=== PATIENT | male | born 1960 | race Caucasian/White ===

== ENCOUNTER → 2024-06-21 06:14 | Day surgery (SDC) | payer BC, SELFPAY | LOC: GI 06:14 | PROVIDERS: ATTENDING PHYSICIAN Surgery | DX: Z12.11 Encounter for screening for malignant neoplasm of colon (principal); K57.30 Diverticulosis of large intestine without perforation or abscess without bleeding; K62.1 Rectal polyp; Z86.0109 Personal history of other colon polyps; Z80.0 Family history of malignant neoplasm of digestive organs | CPT/HCPCS: 45380; 88305 ==

== ENCOUNTER → 2024-06-29 15:55 | Outpatient (REF) | payer BC, SELFPAY | LOC: HWRAD 15:55 | PROVIDERS: ATTENDING PHYSICIAN Internal Medicine Critical Care Medicine; FAMILY PHYSICIAN Family Medicine | DX: Z87.891 Personal history of nicotine dependence (principal) | CPT/HCPCS: 71271 ==

== ENCOUNTER → 2025-01-20 07:53 | Outpatient (REF) | payer BC, SELFPAY ==
[2025-01-20 08:37] LABS: % Basophils 0.7 % (0-2); % Eosinophils 2.9 % (0-6); % Immature Granulocytes 0.9 % (0-0.5); % Lymphocytes 22.8 % (20.5-51.1); % Monocytes 8.2 % (1.7-9.3); % Neutrophils 64.5 % (42.2-75.2); Absolute Basophils 0.1 10^3/uL (0-0.2); Absolute Eosinophils 0.2 10^3/uL (0-0.7); Absolute Immature Granulocytes 0.1 10^3/uL (0-0.05); Absolute Lymphocytes 1.7 10^3/uL (1.2-3.4); Absolute Monocytes 0.6 10^3/uL (0.1-0.6); Absolute Neutrophils 4.9 10^3/uL (1.4-6.5); Hematocrit 44.1 % (39.0-52.0); Hemoglobin 15.5 g/dL (13.0-18.0); Mean Corp Hgb Conc. 35.1 g/dL (33.0-37.0); Mean Corpuscular Hgb 31.7 pg (27.0-31.0); Mean Corpuscular Volume 90.2 fL (80.0-94.0); Mean Platelet Volume 9.6 fL (7.4-10.4); Nucleated Red Blood Cells % 0 % (-); Platelet Count 183 10^3/uL (130-400); Red Blood Cell Count 4.89 10^6/uL (4.70-6.10); Red Cell Dist. Width 12.6 % (11.5-14.5); White Blood Cell Count 7.5 10^3/uL (4.8-10.8)
[2025-01-20 09:09] LABS: ALT (SGPT) 29 U/L (0-50); AST (SGOT) 23 U/L (17-59); Albumin 4.5 g/dl (3.5-5.0); Alkaline Phosphatase 60 U/L (38-126); Blood Urea Nitrogen 17 mg/dl (9-20); Calcium 9.5 mg/dl (8.4-10.2); Carbon Dioxide 28 mmol/L (22-30); Chloride 107 mmol/L (98-107); Glucose 101 mg/dl (70-99); HDL Cholesterol 34 mg/dl; LDL Cholesterol, Calculated 15 mg/dl; Potassium 4.3 mmol/L (3.5-5.1); Sodium 144 mmol/L (135-145); Total Bilirubin 0.8 mg/dl (0.2-1.3); Total Cholesterol 79 mg/dl (50-199); Triglyceride 150 mg/dl (10-149); Very Low Density Lipoprotein 30 mg/dl (0-30); eGFR > 60.00
[2025-01-20 09:31] LABS: TSH 1.27 uIU/ml (0.47-4.68)
[2025-01-21 10:52] LABS: Glycohemoglobin (HgbA1c) 5.5 % (4.0-5.6)
== END ==
LOC: REG 07:53
PROVIDERS: ATTENDING PHYSICIAN Internal Medicine; FAMILY PHYSICIAN Family Medicine
DX: E78.5 Hyperlipidemia, unspecified (principal); Z00.01 Encounter for general adult medical examination with abnormal findings; I10 Essential (primary) hypertension; R73.03 Prediabetes
CPT/HCPCS: 36415; 80053; 80061; 83036; 84443; 85025

== ENCOUNTER 2025-02-11 13:37 | Inpatient (IN) | payer BC, SELFPAY ==
[2025-02-11] VITALS (11 sets, daily range): BP systolic 103–142; BP diastolic 49–106; BMI 31.0
--- NOTE | 2025-02-11 08:05 | ED.GENMED ---
History of Present Illness
General
Chief Complaint: Male Genito-Urinary Symptoms
Source: patient
Exam Limitations: none
Time Seen by Provider: 02/11/25 08:03
Nursing documentation reviewed up to this point in time: agreed with
History of Present Illness
History of Present Illness:
64 y/o M with with h/o HTH, GERD, previous UTI ecoli bacteremia
here with urinary symptoms x 3
Past History
Past History
ED Past Medical History: GERD and Other (hemorrhoids, OA)
ED Past Surgical History: Cholecystectomy (12/2017) and Other (MOHS neck)
Social History
Tobacco: Smoker
Alcohol: None
Drug: None
Personal:
Living: with family
Employment: Employed
Family History
Family History: Other (Noncontributory)
Phy Exam
Physical Exam
Physical Exam:
GENERAL: Alert , in no apparent distress, nontoxic
EYE: pupils equal and reactive
NECK: Supple
ENT: o/p clr, very dry.
CARDIAC: tachycardic
LUNGS: Clear breath sounds bilaterally, no acute respiratory distress, no wheezes/rales/rhonchi
ABDOMEN: Soft protuberant; palpable bladder, minimal tenderness, without focal tenderness, no r/g, no cvat, normal bowel sounds
NEUROLOGICAL: Alert and oriented, no focal neuro deficits
SKIN: Warm and dry, skin intact.
MUSCULOSKELETAL: No edema, well perfused. neg jessica's sign
PSYCH: Normal and appropriate interaction.
Sepsis
Sepsis Screening
Sepsis Assessment: Sepsis
Sepsis Screening: Lactate >2mmol/L
Sepsis Screen
Sepsis Screen: Sepsis
Date: 02/11/25
Time: 09:28
Course
Orders/Labs/Results
Orders:
Orders
02/11/25 08:05
Bladder Scan- Treatment ONCE
02/11/25 08:15
Blood Culture Q30M
TANG Source: Blood/Venous
Specimen Description:
02/11/25 08:23
0.9% Sodium Chloride 1000 ml [Nss] 1,000 ml IV BOLUS
Acetaminophen [Tylenol] 1,000 mg PO NOW STA
02/11/25 08:32
Lactic Acid Urgent
Urinalysis Reflex To Culture Urgent
Date Specimen was Collected: 02/11/25
Time Specimen was Collected: 08:13
Urine Microscopic Reflex Cult Urgent
Blood Culture Q30M
TANG Source: Blood/Venous
Specimen Description:
Urine Culture Urgent
TANG Source: U
Specimen Description:
Date Specimen was Collected: 02/11/25
Time Specimen was Collected: 08:13
02/11/25 08:34
Complete Blood Count/With Diff Urgent
Comprehensive Metabolic Panel Urgent
02/11/25 09:01
CefTRIAXone [Rocephin] 2,000 mg IV NOW STA
02/11/25 09:15
0.9% Sodium Chloride 1000 ml [Nss] 1,000 ml IV BOLUS
Abnormal Lab Results
02/11/25 02/11/25
08:32 08:34
WBC 16.7 H 10^3/uL
(4.8-10.8)
RBC 4.62 L 10^6/uL
(4.70-6.10)
MCH 32.0 H pg
(27.0-31.0)
Abs Immat Gran (auto) 0.2 H 10^3/uL
(0-0.05)
Absolute Neuts (auto) 15.6 H 10^3/uL
(1.4-6.5)
Absolute Lymphs (auto) 0.5 L 10^3/uL
(1.2-3.4)
Immature Gran % 1.0 H %
(0-0.5)
Neutrophils % 93.3 H %
(42.2-75.2)
Lymphocytes % 2.7 L %
(20.5-51.1)
Glucose 231 H mg/dl
(70-99)
Lactic Acid 3.0 H mmol/L
(0.7-2.0)
Total Bilirubin 1.5 H mg/dl
(0.2-1.3)
Urine Ketones 1+ A
(Negative)
Ur Occult Blood Reflex 4+ A
(Negative)
Leukocyte Esterase Rfl 3+ A
(Negative)
Urine RBC 3-6 A /HPF
(0-2)
Urine WBC (Reflex) 30-40 A /HPF
(0-5)
Urine Bacteria (Reflex) Moderate A
(Negative)
Urine Glucose 2+ A
(Negative)
Urine Albumin (Reflex) 2+ A
(Neg - Trace)
02/11/25 08:34
02/11/25 08:34
Vital Signs
Initial and Last Documented VS:
Initial Vital Signs
Temp Pulse Resp BP Pulse Ox
37.7 C 129 16 103/81 94
02/11/25 07:59 02/11/25 07:59 02/11/25 07:59 02/11/25 07:59 02/11/25 07:59
Last Documented Vital Signs
Temp Pulse Resp BP Pulse Ox
39.4 C H 115 16 120/56 93
02/11/25 08:18 02/11/25 08:30 02/11/25 07:59 02/11/25 09:00 02/11/25 08:45
MDM/Problems Addressed
Differential Diagnosis Includes:
sepsis, uti, pyelo
MDM/Problems Addressed:
h/o ecoli bacteremia/urine 2018
here with 3 days dysuria, fever, vomiting
bp 110/60, febrile
PVR 60 ml
+UTI
lactic 3
cr normal
wbc1 6
getting rocephin, was mckenzie sensitive in 2018
*Critical Care Note
Total Time (30-74mins, 75-104mins- exclusive of procedures): Not Applicable
ED Attending Note
-
Portions of this chart may have been created with voice recognition software.� Occasional wrong word or��sound alike� substitutions may have occurred due to the inherent limitations of voice recognition software.
Discharge Plan
Departure
Patient Disposition: Admit
Date of Disposition: 02/11/25
Time of Disposition: 09:16
Admit to: Med/Surg
Presentation/result/management discussed w/ accepting MD/DO: Hospitalist
Condition: Fair
Covid-19: Not Applicable
Discharge Problem:
Sepsis, UTI (urinary tract infection)
Prescriptions:
No Action
losartan 25 MG tablet
100 mg PO DAILY
docosahexaenoic acid-epa 1 CAP capsule
1 cap PO DAILY
Patient Comments:
patient does not know dose
Vitamin C
1 tab PO DAILY
Patient Comments:
patient does not know dose
Vitamin E :
1 tab PO DAILY
aspirin 81 MG tablet,chewable
81 mg PO DAILY Qty: 1 0RF
Referrals:
Leighton Simpson, DO [Family Provider] -
Interventions
Interventions:
*Risk Screen - Suicide Last Done: 02/11/25 07:59
*General Assessment Last Done: 02/11/25 08:14
*Neglect/Abuse Screening Last Done: 02/11/25 07:59
*ED- Fall Risk Assessment Last Done: 02/11/25 08:14
*ED COVID-19 Vaccine History Last Done: 02/11/25 08:14
ED-Male Genitourinary Assessment Last Done: 02/11/25 08:14
Discharge Date and Time
Print Language: MOROCCAN
[2025-02-11] MEDS: NSS 1000 IV ×3 (08:30→13:02)
[2025-02-11] MEDS: TYLENOL 1000 MG PO ×2 (08:32→13:01)
[2025-02-11 08:52] LABS: % Basophils 0.2 % (0-2); % Eosinophils 0.1 % (0-6); % Lymphocytes 2.7 % (20.5-51.1); % Monocytes 2.7 % (1.7-9.3); % Neutrophils 93.3 % (42.2-75.2); Absolute Immature Granulocytes 0.2 10^3/uL (0-0.05); Absolute Lymphocytes 0.5 10^3/uL (1.2-3.4); Absolute Monocytes 0.5 10^3/uL (0.1-0.6); Absolute Neutrophils 15.6 10^3/uL (1.4-6.5); Hematocrit 41.2 % (39.0-52.0); Hemoglobin 14.8 g/dL (13.0-18.0); Mean Corp Hgb Conc. 35.9 g/dL (33.0-37.0); Mean Corpuscular Volume 89.2 fL (80.0-94.0); Mean Platelet Volume 9.6 fL (7.4-10.4); Nucleated Red Blood Cells % 0 % (-); Platelet Count 143 10^3/uL (130-400); Red Blood Cell Count 4.62 10^6/uL (4.70-6.10); Red Cell Dist. Width 12.3 % (11.5-14.5); White Blood Cell Count 16.7 10^3/uL (4.8-10.8)
[2025-02-11 08:53] LABS: Urine Albumin 2+ (Neg - Trace); Urine Bilirubin Negative (Negative); Urine Character Cloudy (Clear); Urine Color Yellow; Urine Glucose 2+ (Negative); Urine Ketone 1+ (Negative); Urine Leukocyte 3+ (Negative); Urine Nitrite Negative (Negative); Urine Occult Blood 4+ (Negative); Urine Urobilinogen Negative (Neg - 1+)
[2025-02-11 09:04] LABS: Urine Bacteria Moderate (Negative); Urine Squamous Cell 0-2 /LPF (Few); Urine White Cell 30-40 /HPF (0-5)
[2025-02-11 09:04] LABS: ALT (SGPT) 26 U/L (0-50); AST (SGOT) 24 U/L (17-59); Albumin 4.1 g/dl (3.5-5.0); Alkaline Phosphatase 60 U/L (38-126); Blood Urea Nitrogen 19 mg/dl (9-20); Calcium 9.3 mg/dl (8.4-10.2); Carbon Dioxide 24 mmol/L (22-30); Chloride 105 mmol/L (98-107); Estimated Creatinine Clearance 77 ml/min; Glucose 231 mg/dl (70-99); Potassium 3.6 mmol/L (3.5-5.1); Sodium 136 mmol/L (135-145); Total Bilirubin 1.5 mg/dl (0.2-1.3); Total Protein 6.7 g/dl (6.3-8.2); eGFR > 60.00
[2025-02-11] MEDS: ROCEPHIN 2000 MG IV (09:07)
--- NOTE | 2025-02-11 13:08 | HPS.HSE ---
Family Physician
-
Family Physician: Leighton Simpson
Chief Complaint
-
Urine symptoms
History of Present Illness
64-year-old male with past medical history of hypertension, GERD, previous history of E. coli UTI with secondary bacteremia now presents for 3 days of urinary symptoms. 3 days ago started having difficulty urinating, with thin stream as per
patient. Further patient noted to have fever 3 days ago as well. Symptoms worsened, including dysuria. Noted to have temperature 103 Fahrenheit in the ED. Pulse 106, blood pressure 135/106. 98% on room air. Respiratory rate 16. Notable labs
include white count of 16.7. Lactic is 1. Total bili 1.5. UA grossly positive. Patient obviously not comfortable although denies any suprapubic tenderness.
Medical History
Past Medical History
Past Medical History: Reports GERD and HTN
Past Surgical History: Reports Other (Cholecystectomy (12/2017) and Other (MOHS neck))
Social History
Tobacco: Non-smoker
Alcohol: None
Drug: None
Personal:
Family History
Family History: Not pertinent
Allergies / Home Medications
Allergies reflects when Allergies were last updated in [facility].
Home Medications with original date entered in [facility]
Allergy/Medication List:
Allergies
Allergy/AdvReac Type Severity Reaction Status Date / Time
bempedoic acid AdvReac Severe Nausea / Verified 02/11/25 12:02
[From Nexlizet] Vomiting
ezetimibe [From Nexlizet] AdvReac Severe Nausea / Verified 02/11/25 12:02
Vomiting
NKA - No Known Allergies Allergy Unknown Unknown Uncoded 02/11/25 07:59
Home Medications
ascorbic acid (vitamin C) 500 mg tablet (Vitamin C) 500 mg PO DAILY ##0 08/25/19
aspirin 81 mg chewable tablet 81 mg PO DAILY #1 tab 08/25/19
calcium carbonate 500 mg PO DAILY 02/11/25
esomeprazole magnesium 20 mg capsule,delayed release (Nexium) 40 mg PO DAILY 02/11/25
evolocumab 140 mg/mL subcutaneous pen injector (Repatha SureClick) 140 mg SC Q2W 02/11/25
glucosamine-chondroitin 250 mg-200 mg tablet 1 tab PO DAILY 02/11/25
losartan 100 mg tablet 100 mg PO DAILY 02/11/25
meloxicam 15 mg tablet 15 mg PO DAILY 02/11/25
omega 6-cqv-zqw-fish oil 60 mg-90 mg-500 mg capsule (Fish Oil) 1 cap PO DAILY 02/11/25
turmeric 400 mg capsule 400 mg PO DAILY 02/11/25
varenicline tartrate 1 mg tablet (Chantix) 1 mg PO DAILY 02/11/25
Review of Systems
-
History Source: Patient
A 12 point ROS was completed and negative except as noted: Yes
Physical Exam
Vital Signs
Vital Signs
Temp Pulse Resp BP Pulse Ox
100.3 F 106 16 135/106 98
02/11/25 13:04 02/11/25 13:00 02/11/25 07:59 02/11/25 13:00 02/11/25 13:00
Physical Exam
General: Well Developed and Well Nourished
HEENT: NormoCephalic
Respiratory: Clear
Cardiac: S1/S2 and Regular Rhythm
GI: Soft and Non Tender
Musculoskeletal: No Clubbing
Skin: Warm
Neuro: Awake, Alert, Oriented and AO x 3
Hematologic/Lymphatic: No Lymphadenopathy
Laboratory Results
-
02/11/25 08:34
02/11/25 08:34
Laboratory Results
Lactic Acid 1.0 mmol/L (0.7-2.0) 02/11/25 11:17
Total Bilirubin 1.5 mg/dl (0.2-1.3) H 02/11/25 08:34
AST 24 U/L (17-59) 02/11/25 08:34
ALT 26 U/L (0-50) 02/11/25 08:34
Alkaline Phosphatase 60 U/L (38-126) 02/11/25 08:34
Data Reviewed
-
Lab Data: Labs Reviewed by me
Impression/Plan
-
IMPRESSION:
64-year-old male with past medical history of E. coli UTI with subsequent bacteremia now presenting for 3 days of urinary symptoms. Admitted for sepsis.
PLAN:
#Sepsis
#UTI
� Has history of E. coli bacteremia in setting of UTI
� Initiate Zosyn
� Obtain CT abdomen/pelvis
� Follow-up urine cultures, blood cultures
� Maintain MAP greater than 65
�IVF
�Initiate tamsulosin if BP remains stable
#Hypertension, essential
Hold on antihypertensives
#GERD
� Continue PPI
#DVT prophylaxis
� HSQ
--- NOTE | 2025-02-11 14:17 | CM ---
Patient seen at bedside in ED. Patient lives with and son in [place] home. Patient PCP is Dr. Egan and he uses the [facility] in [place] and he has no DME at home. Patient has a walker due to recent knee surgery. Patient with no past needs
for VN. Patient plan for discharge home with no needs. CM will continue to follow for discharge planing needs.
Plan; home with no needs pending medical treatment plan
[2025-02-11] MEDS: LR 1000 IV ×2 (14:41→15:50)
[2025-02-11] MEDS: ZOSYN 100 IV ×2 (15:50→21:05)
[2025-02-11] MEDS: HEPARIN 5000 UNITS SC ×2 (15:56→23:36)
[2025-02-12 03:00] VITALS: BP 120/64
[2025-02-12] MEDS: LR 1000 IV (04:15)
[2025-02-12] MEDS: ZOSYN 100 IV (04:15)
[2025-02-12 07:00] VITALS: BP 151/74
[2025-02-12 08:07] LABS: ALT (SGPT) 26 U/L (0-50); AST (SGOT) 21 U/L (17-59); Albumin 3.2 g/dl (3.5-5.0); Alkaline Phosphatase 55 U/L (38-126); Blood Urea Nitrogen 15 mg/dl (9-20); Calcium 8.6 mg/dl (8.4-10.2); Carbon Dioxide 29 mmol/L (22-30); Chloride 110 mmol/L (98-107); Estimated Creatinine Clearance 95 ml/min; Glucose 98 mg/dl (70-99); Magnesium 1.6 mg/dl (1.6-2.3); Potassium 4.1 mmol/L (3.5-5.1); Sodium 142 mmol/L (135-145); Total Bilirubin 0.9 mg/dl (0.2-1.3); Total Protein 5.6 g/dl (6.3-8.2); eGFR > 60.00
[2025-02-12 08:09] LABS: Hemoglobin 13.2 g/dL (13.0-18.0); Mean Corp Hgb Conc. 35.7 g/dL (33.0-37.0); Mean Corpuscular Hgb 32.2 pg (27.0-31.0); Mean Corpuscular Volume 90.2 fL (80.0-94.0); Mean Platelet Volume 10.5 fL (7.4-10.4); Platelet Count 122 10^3/uL (130-400); Red Cell Dist. Width 12.6 % (11.5-14.5); White Blood Cell Count 16.1 10^3/uL (4.8-10.8)
[2025-02-12] MEDS: HEPARIN 5000 UNITS SC ×3 (08:19→23:16)
[2025-02-12] MEDS: CHANTIX 1 MG PO (08:19)
[2025-02-12] MEDS: OSCAL CAL 500 500 MG PO (08:21)
[2025-02-12] MEDS: STERILE WATER FOR INJECTION 10 ML IV (08:21)
[2025-02-12] MEDS: ROCEPHIN 1000 MG IV (08:21)
[2025-02-12] MEDS: PROTONIX 40 MG PO (08:21)
[2025-02-12] MEDS: LOW STRENGTH ASPIRIN 81 MG PO (08:21)
[2025-02-12 11:00] VITALS: BP 153/78
--- NOTE | 2025-02-12 11:54 | W.PN.HOSP.TC ---
Today's Communication/Plan
-
see PN
Assessment / Plan
Assessment / Plan
64yo M with PMHx of HTN, GERD, HLD, CAD came with burning during urination and weak stream for 2 days, found UTI. CT with mild urinary bladder thikening and mild prostate enlargement. Patient was previously seen by few montghs ago, but not
on any meds
A/P:
#UTI
#most likely BPH, no over symptoms of prostatitis
#1.3 cm L renal cyst
#subcentimeter low-attenuation left renal lesion
Follow up with urology, might need repeated CT vs MRI for renal lesions
no hydronephrosis or nepohrolithiasis
Inital Ucx with multiple organism - repeat straight cath
Ceftriaxone
follow CBC for WBC trend and fever curve
Tamsulosin/finasteride
Bcx NTD
#Essential HTN
#CAD
#HLD
#GERD
cont hoem meds
#DJD
tylenol PRN
DVT ppx hep
Full code
I have spent at least 58min reviewing chart, test results, communication witgh family and providing direct patient care
Anticipated Discharge: 24 - 48 hours
Subjective/Interval History
-
Date of Service: February 12, 2025
Objective Data
-
Labs:
Laboratory Results
02/12/25
06:59
WBC 16.1 H
Hgb 13.2
Hct 37.0 L
Plt Count 122 L
Sodium 142
Potassium 4.1
Chloride 110 H
Carbon Dioxide 29
BUN 15
Creatinine 1.1
Glucose 98
Calcium 8.6
Total Bilirubin 0.9
AST 21
ALT 26
Alkaline Phosphatase 55
Vital Signs:
Vital Signs
Temp Pulse Resp BP Pulse Ox
98.2 F 79 18 153/78 94
02/12/25 11:00 02/12/25 11:00 02/12/25 11:00 02/12/25 11:00 02/12/25 11:00
I&O
02/11/25 02/12/25 02/13/25
06:59 06:59 06:59
Intake Total 2189
Balance 2189
Review of Systems
-
History Source: Patient
All other systems: Reviewed and negative
Physical Exam
-
General: No Apparent Distress
HEENT: Normocephalic
Respiratory: Clear to Auscultation
Cardiac: Regular Rhythm
GI: Soft, Nontender and Nondistended
Neuro: Awake, Alert, Oriented and AO x 3
Psych: Calm
[2025-02-12] MEDS: FLOMAX 0.4 MG PO (12:20)
[2025-02-12 13:21] LABS: Urine Albumin 1+ (Neg - Trace); Urine Bilirubin Negative (Negative); Urine Character Clear (Clear); Urine Color Yellow; Urine Glucose Negative (Negative); Urine Ketone Negative (Negative); Urine Leukocyte Negative (Negative); Urine Nitrite Negative (Negative); Urine Occult Blood 1+ (Negative); Urine Specific Gravity 1.005 (<1.030); Urine Urobilinogen Negative (Neg - 1+)
[2025-02-12 13:29] LABS: Urine Bacteria Few (Negative); Urine Squamous Cell 0-2 /LPF (Few)
[2025-02-12 15:00] VITALS: BP 116/79
[2025-02-12 19:48] VITALS: BP 156/92
[2025-02-12] MEDS: TYLENOL 650 MG PO (21:17)
[2025-02-12 23:32] VITALS: BP 142/80
[2025-02-13 03:25] VITALS: BP 166/87
[2025-02-13 05:38] LABS: % Basophils 0.3 % (0-2); % Eosinophils 0.7 % (0-6); % Immature Granulocytes 0.7 % (0-0.5); % Lymphocytes 12.3 % (20.5-51.1); % Monocytes 6.3 % (1.7-9.3); % Neutrophils 79.7 % (42.2-75.2); Absolute Eosinophils 0.1 10^3/uL (0-0.7); Absolute Immature Granulocytes 0.1 10^3/uL (0-0.05); Absolute Lymphocytes 1.5 10^3/uL (1.2-3.4); Absolute Monocytes 0.8 10^3/uL (0.1-0.6); Absolute Neutrophils 9.8 10^3/uL (1.4-6.5); Hemoglobin 13.3 g/dL (13.0-18.0); Mean Corpuscular Hgb 31.4 pg (27.0-31.0); Mean Corpuscular Volume 89.6 fL (80.0-94.0); Mean Platelet Volume 10.1 fL (7.4-10.4); Nucleated Red Blood Cells % 0 % (-); Platelet Count 136 10^3/uL (130-400); Red Blood Cell Count 4.24 10^6/uL (4.70-6.10); Red Cell Dist. Width 12.2 % (11.5-14.5); White Blood Cell Count 12.2 10^3/uL (4.8-10.8)
[2025-02-13 05:52] VITALS: BMI 30.8
[2025-02-13 06:01] LABS: ALT (SGPT) 24 U/L (0-50); AST (SGOT) 19 U/L (17-59); Albumin 3.4 g/dl (3.5-5.0); Alkaline Phosphatase 71 U/L (38-126); Blood Urea Nitrogen 13 mg/dl (9-20); Carbon Dioxide 26 mmol/L (22-30); Chloride 110 mmol/L (98-107); Estimated Creatinine Clearance 105 ml/min; Glucose 110 mg/dl (70-99); Potassium 3.7 mmol/L (3.5-5.1); Sodium 140 mmol/L (135-145); Total Bilirubin 0.5 mg/dl (0.2-1.3); Total Protein 5.9 g/dl (6.3-8.2); eGFR > 60.00
[2025-02-13 07:17] VITALS: BP 149/88
[2025-02-13] MEDS: PROTONIX 40 MG PO (08:48)
[2025-02-13] MEDS: CHANTIX 1 MG PO (08:48)
[2025-02-13] MEDS: PROSCAR 5 MG PO (08:48)
[2025-02-13] MEDS: ROCEPHIN 1000 MG IV (08:48)
[2025-02-13] MEDS: STERILE WATER FOR INJECTION 10 ML IV (08:48)
[2025-02-13] MEDS: LOW STRENGTH ASPIRIN 81 MG PO (08:49)
[2025-02-13] MEDS: OSCAL CAL 500 500 MG PO (08:49)
[2025-02-13] MEDS: HEPARIN 5000 UNITS SC (08:49)
[2025-02-13] MEDS: FLOMAX 0.4 MG PO (08:49)
--- NOTE | 2025-02-13 09:45 | W.PN.HOSP.TC ---
Today's Communication/Plan
-
DC
Assessment / Plan
Assessment / Plan
64yo M with PMHx of HTN, GERD, HLD, CAD came with burning during urination and weak stream for 2 days, found UTI. CT with mild urinary bladder thikening and mild prostate enlargement. Patient was previously seen by few months ago, but not
on any meds. Repeated straight cath UA neg for infection however done after initiation of Abx. WBC kept improving on Ceftriaxone and patient remained afebrile for >24h before d/c. Reasonable to continue empiric treatment with 3rd gen cephalosporin
upon d/c with recommendations to see Urologist. Medcialy stable for d/c
A/P:
#UTI, no clinical or radiographic signs of pyelonephritis
#most likely BPH, no over symptoms of prostatitis
#1.3 cm L renal cyst
#subcentimeter low-attenuation left renal lesion
Follow up with urology, might need repeated CT vs MRI for renal lesions
no hydronephrosis or nepohrolithiasis
Inital Ucx with multiple organism - repeat straight cath
Ceftriaxone
follow CBC for WBC trend and fever curve
Tamsulosin/finasteride
Bcx NTD
#Essential HTN
#CAD
#HLD
#GERD
cont hoem meds
#DJD
tylenol PRN
DVT ppx hep
Full code
I have spent at least 38min reviewing chart, test results, communication witgh family and providing direct patient care
Anticipated Discharge: Today
Subjective/Interval History
-
Date of Service: February 13, 2025
Objective Data
-
Labs:
Laboratory Results
02/13/25
05:05
WBC 12.2 H
Hgb 13.3
Hct 38.0 L
Plt Count 136
Sodium 140
Potassium 3.7
Chloride 110 H
Carbon Dioxide 26
BUN 13
Creatinine 1.0
Glucose 110 H
Calcium 9.0
Total Bilirubin 0.5
AST 19
ALT 24
Alkaline Phosphatase 71
Vital Signs:
Vital Signs
Temp Pulse Resp BP Pulse Ox
98.0 F 65 18 149/88 95
02/13/25 07:17 02/13/25 07:17 02/13/25 07:17 02/13/25 07:17 02/13/25 07:17
I&O
02/12/25 02/13/25 02/14/25
06:59 06:59 06:59
Intake Total 0 / 2190 0 / 1920
Output Total 300 / 300
Balance 0 / 0 1620 / 1620
Review of Systems
-
History Source: Patient
All other systems: Reviewed and negative
Genitourinary: Reports Other (burning on urination)
Physical Exam
-
General: No Apparent Distress and Comfortable
Respiratory: Clear to Auscultation
Cardiac: Regular Rhythm
GI: Soft, Nontender and Nondistended
Genito-urinary: No Costovertebral Tender
Neuro: Awake, Alert, Oriented and AO x 3
Psych: Calm
--- NOTE | 2025-02-13 09:52 | W.DCSUMMARY ---
Discharge Summary
Discharge Data
Date of Admission: 02/11/25
Date of Discharge: 02/13/25
-
Pending Results: No
Hospital Course
64yo M with PMHx of HTN, GERD, HLD, CAD came with burning during urination and weak stream for 2 days, found UTI. CT with mild urinary bladder thikening and mild prostate enlargement. Patient was previously seen by few months ago, but not
on any meds. Repeated straight cath UA neg for infection however done after initiation of Abx. WBC kept improving on Ceftriaxone and patient remained afebrile for >24h before d/c. Reasonable to continue empiric treatment with 3rd gen cephalosporin
upon d/c with recommendations to see Urologist. Medcialy stable for d/c. MRI recommended for L subcentimeter renal lesion with PCP - patient verbalized understanding of the instructions
I have spent at least 38min reviewing chart, test results, communication with family and providing direct patient care
Patient was managed for:
#UTI, no clinical or radiographic signs of pyelonephritis
#most likely BPH, no over symptoms of prostatitis
#1.3 cm L renal cyst
#subcentimeter low-attenuation left renal lesion
#Essential HTN
#CAD
#HLD
#GERD
#DJD
Discharge Plan
-
Patient Disposition: Home (Routine Discharge)
Discharge Diagnosis/Procedures: UTI
Diet: Low Cholesterol
Activity: No restrictions
Driving Restrictions: As prior to admission
Referrals:
Leighton Simpson DO [Family Provider] - in four to six weeks (Schedule MRI abdomen for subcentimeter low-attenuation left renal lesion)
Kwabena Mosley MD [Active] - in one to two weeks
Prescriptions:
New
cefdinir 300 mg capsule
300 mg PO BID Qty: 16 0RF
tamsulosin 0.4 mg Capsule
0.4 mg PO DAILY Qty: 30 0RF
finasteride 5 mg Tablet
5 mg PO DAILY Qty: 30 0RF
Continued
aspirin 81 MG tablet,chewable
81 mg PO DAILY Qty: 1 0RF
meloxicam 15 mg Tablet
15 mg PO DAILY
varenicline tartrate [Chantix] 1 mg Tablet
1 mg PO DAILY
Rx Instructions:
unknown mg
esomeprazole magnesium [Nexium] 20 mg Capsule,Delayed Release(Dr/Ec)
40 mg PO DAILY
Rx Instructions:
unknown dose per
omega 1-pqe-rqf-fish oil [Fish Oil] 60-90-500 mg Capsule
1 cap PO DAILY
Rx Instructions:
unknown dose
glucosamine-chondroitin 250-200 mg Tablet
1 tab PO DAILY
Rx Instructions:
dose not known
Repatha SureClick 140 mg/mL Pen Injector
140 mg SC Q2W
turmeric 400 mg Capsule
400 mg PO DAILY
calcium carbonate 500 mg calcium (1,250 mg) Tablet
500 mg PO DAILY
losartan 100 mg Tablet
100 mg PO DAILY
Discontinued
ascorbic acid (vitamin C) [Vitamin C] 500 mg Tablet
500 mg PO DAILY Qty: 0
Rx Instructions:
500mg
Discharge Orders:
Discharge Patient (As Directed); Ordered 02/13/25
Ordered By: César Venegas
Discharge Date and Time
Print Language: LIBYAN
--- NOTE | 2025-02-13 10:23 | CM ---
MD entered order for discharge.
Spoke with pt he said his son Edmnudo will drive him home today.
Offered VN he declined need.
PLAN Home no needs
[2025-02-13 10:57] VITALS: BP 157/93
--- NOTE | 2025-02-13 13:36 | PN.CDI ---
Addendum entered and electronically signed by César Venegas MD 02/13/25 14:32:
No signs of sepsis when I saw patient
Original Note:
CDI
- -
CDI:
Physician Documentation Request
Admit Date: 02/11/25 13:37
Dear Doctor Theo,
Please review the following and provide your response in the progress notes.
Clinical Indicators:
The diagnosis of sepsis was documented on 02/11 H&P, but is not consistently noted in subsequent documentation.
- On admission: WBC 16.7, Tmax 103.0, HR 100s
- 6L IVF given
- IV abx ceftriaxone, zosyn
- 02/11 H&P 'sepsis...uti'
- 02/13 PN 'UTI, no clinical or radiographic signs of pyelonephritis'
Please clarify the following:
____ - Sepsis was present on admission and is now resolved
____ - Sepsis was ruled out
____ - Other
Use of terms such as suspected, likely, concern for, or probable (associated with a specific diagnosis that is being evaluated, monitored, or treated as if it exists) are acceptable and can be coded in the inpatient setting, when documented at the
time of discharge.
Thank you,
Luisito James RN
CDI Specialist
Please use your independent medical judgment in providing your response.
== END 2025-02-13 11:24 | disposition home or self-care (01) | DRG 690 ==
LOC: 3 WEST ACU 13:37
PROVIDERS: Physician Assistant; ADMITTING PHYSICIAN Internal Medicine; ATTENDING PHYSICIAN Internal Medicine; EMERGENCY PHYSICIAN Emergency Medicine; FAMILY PHYSICIAN Family Medicine
DX: N39.0 Urinary tract infection, site not specified (principal); K21.9 Gastro-esophageal reflux disease without esophagitis; F17.200 Nicotine dependence, unspecified, uncomplicated; M19.90 Unspecified osteoarthritis, unspecified site; I10 Essential (primary) hypertension; E78.5 Hyperlipidemia, unspecified; I25.10 Atherosclerotic heart disease of native coronary artery without angina pectoris; N40.0 Benign prostatic hyperplasia without lower urinary tract symptoms; N28.1 Cyst of kidney, acquired; Z87.440 Personal history of urinary (tract) infections; Z90.49 Acquired absence of other specified parts of digestive tract; Z88.8 Allergy status to other drugs, medicaments and biological substances; Z79.82 Long term (current) use of aspirin; Z79.1 Long term (current) use of non-steroidal anti-inflammatories (NSAID)
CPT/HCPCS: 51798; 74177; 80053; 81003; 81015; 83605; 83735; 85025; 85027; 87040; 87086; 96361; 96374; 99284; Q9967

== ENCOUNTER → 2025-07-06 14:40 | Outpatient (REF) | payer BC, SELFPAY | LOC: HWRAD 14:40 | PROVIDERS: ATTENDING PHYSICIAN Internal Medicine Critical Care Medicine; FAMILY PHYSICIAN Family Medicine | DX: Z87.891 Personal history of nicotine dependence (principal) | CPT/HCPCS: 71271 ==

== ENCOUNTER → 2025-07-20 15:39 | Outpatient (REF) | payer BC, SELFPAY | LOC: HWRCS 15:39 | PROVIDERS: ATTENDING PHYSICIAN Internal Medicine; FAMILY PHYSICIAN Family Medicine | DX: I25.10 Atherosclerotic heart disease of native coronary artery without angina pectoris (principal); I10 Essential (primary) hypertension | CPT/HCPCS: 93306 ==

== ENCOUNTER 2025-08-26 14:06 | Inpatient (IN) | payer BC, SELFPAY ==
[2025-08-26] VITALS (15 sets, daily range): BP systolic 111–165; BP diastolic 64–97; BMI 31.2; BMI 31.6
--- NOTE | 2025-08-26 11:16 | ED.GENMED ---
History of Present Illness
General
Chief Complaint: Male Genito-Urinary Symptoms
Source: patient
Exam Limitations: none
Time Seen by Provider: 08/26/25 10:41
Nursing documentation reviewed up to this point in time: agreed with
History of Present Illness
History of Present Illness:
The patient is a 65-year-old man who reports waking up this morning with fevers, chills, vomiting and burning with urination. Patient also feels short of breath and admits to a cough. He denies chest pain. He denies abdominal pain and back pain.
Past History
Past History
ED Past Medical History: GERD and Other (hemorrhoids, OA)
ED Past Surgical History: Cholecystectomy (12/2017) and Tonsilectomy
Social History
Tobacco: Smoker
Alcohol: None
Drug: None
Personal:
Living: with family
Employment: Employed
Family History
Family History: Other (Noncontributory)
Review of Systems
Review of Systems
Allergies reviewed?: Yes
All Other Systems: ROS reviewed and negative except as documented in HPI and ROS
Constitutional: Reports fever and chills
EENT: Reports no symptoms
Respiratory: Reports cough and trouble breathing
Cardiac: Reports no symptoms
ABD/GI: Reports nausea and vomiting
: Reports dysuria, frequency and urgency
Musculoskeletal: Reports no symptoms
Skin: Reports no symptoms
Neurological: Reports no symptoms
Endocrine: Reports no symptoms
Hematologic/Lymphatic: Reports no symptoms
Psychiatric: Reports no symptoms
Phy Exam
Physical Exam
Physical Exam:
Physical Exam
General: Patient appears flushed and mildly tachypneic
Neck: supple. no meningeal signs. normal psoterior pharynx
Heart: Tachycardic
Lungs: Clear breath sounds. Mildly tachypneic
Abdomen: normal bowel sounds. not tender. no CVAT
Neuro: alert and oriented. no focal neurological deficits
Skin: no rash
Psychiatric: well kept. interactive and cooperative
Extremities: no edema. no calf tenderness. negative homans. good distal pulses
Sepsis
Sepsis Screening
Sepsis Assessment: Sepsis
Sepsis Screen
Sepsis Screen: Sepsis
Date: 08/26/25
Time: 13:02
Course
Orders/Labs/Results
Orders:
Orders
08/26/25 11:04
Complete Blood Count/With Diff Urgent
Comprehensive Metabolic Panel Urgent
Lactic Acid Urgent
08/26/25 11:08
0.9% Sodium Chloride 1000 ml [Nss] 1,000 ml IV BOLUS
08/26/25 11:14
Acetaminophen [Tylenol] 1,000 mg PO NOW STA
08/26/25 11:15
CR Chest - 2 Views Urgent
Comment:
Reason For Exam: shortness of breath
08/26/25 11:22
COVID-19 Antigen Urgent
Source: Nasal Swab
Urinalysis Reflex To Culture Urgent
Date Specimen was Collected: 08/26/25
Time Specimen was Collected: 10:56
Urine Microscopic Reflex Cult Urgent
Influenza A+B Rapid Molecular Urgent
TANG Source: Nasal Swab
Specimen Description:
Urine Culture Urgent
TANG Source: U
Specimen Description:
Date Specimen was Collected: 08/26/25
Time Specimen was Collected: 10:56
08/26/25 11:34
0.9% Sodium Chloride 1000 ml [Nss] 1,600 ml IV NOW STA
08/26/25 11:45
Blood Culture Q30M
TANG Source: Blood/Venous
Specimen Description:
08/26/25 11:50
Electrocardiogram (*1) Urgent
Reason for Study: Shortness of Breath
EKG- Treatment ONCE
08/26/25 12:49
CefTRIAXone [Rocephin] 1,000 mg IV NOW STA
08/26/25 12:55
CT Abd/pel Without Iv Or Oral Urgent
Comment:
Reason For Exam: fever, UTI
Abnormal Lab Results
08/26/25 08/26/25
11:04 11:22
WBC 13.5 H 10^3/uL
(4.8-10.8)
MCH 31.2 H pg
(27.0-31.0)
Abs Immat Gran (auto) 0.1 H 10^3/uL
(0-0.05)
Absolute Neuts (auto) 12.4 H 10^3/uL
(1.4-6.5)
Absolute Lymphs (auto) 0.5 L 10^3/uL
(1.2-3.4)
Immature Gran % 0.6 H %
(0-0.5)
Neutrophils % 91.6 H %
(42.2-75.2)
Lymphocytes % 3.8 L %
(20.5-51.1)
BUN 21 H mg/dl
(9-20)
Glucose 137 H mg/dl
(70-99)
Ur Occult Blood Reflex 2+ A
(Negative)
Leukocyte Esterase Rfl 3+ A
(Negative)
Urine RBC 16-20 A /HPF
(0-2)
Urine WBC (Reflex) 40-50 A /HPF
(0-5)
Urine Bacteria (Reflex) Moderate A
(Negative)
Urine Albumin (Reflex) 2+ A
(Neg - Trace)
08/26/25 11:04
08/26/25 11:04
Vital Signs
Initial and Last Documented VS:
Initial Vital Signs
Temp Pulse Resp BP Pulse Ox
99.3 F 139 20 165/96 93
08/26/25 10:31 08/26/25 10:31 08/26/25 10:31 08/26/25 10:31 08/26/25 10:31
Last Documented Vital Signs
Temp Pulse Resp BP Pulse Ox
99.5 F 110 26 139/76 94
08/26/25 12:12 08/26/25 12:12 08/26/25 12:12 08/26/25 12:12 08/26/25 12:12
MDM/Problems Addressed
Differential Diagnosis Includes:
Sepsis from UTI, pneumonia, influenza
MDM/Problems Addressed:
Patient presents with acute fever, nausea, vomiting and dysuria
Chronic conditions affecting care: HTN
Acute Exacerbation and/or Progression of Chronic Illness:
Patient is acutely hypertensive, likely due to fever and not feeling well
*Radiology
Radiology exam reviewed: preliminary read by ED provider (Chest x-ray reviewed by me. No acute disease)
*Pulse Oximetry
SaO2: 92
Oxygen Mode of Delivery: Room air
Patient hypoxic: no
*EKG
Interpreted by ED Provider?: Yes
Interpretation: abnormal
Comparison EKG: changes noted
Rate: tachycardiac
Rhythm: sinus
Nimitz: normal axis
Interval: normal interval
QRS Pattern: normal QRS
Ischemia: no ischemia
*Varnish Thinner Interpretation
Rate: tachycardiac
Interpretation: abnormal
Rhythm: sinus
*Critical Care Note
Total Time (30-74mins, 75-104mins- exclusive of procedures): 35 minutes of critical ca
comment:
35 minutes of critical care given to patient including counseling patient and his family, reviewing prior hospitalization from January, reviewing CAT scan from January, reviewing lab work and reassessing his heart rate and mental status
Data Reviewed
Review of Other/Old Records Reveals: Discharge Summary (Discharge summary reviewed from January 2025 when patient was admitted for sepsis and UTI)
Source: patient and family
Update Note
Update Note:
Patient's heart rate improved with IV fluids. Patient likely has UTI, so will be treated with Rocephin. Chest x-ray appears clear.
Patient has no flank pain to suggest obstructing renal stone. CT abdomen pelvis reviewed by me from this past January which showed no sign of kidney stone. However, given that patient has a fever I have ordered a plain CAT scan to make sure that there
is no kidney stone involvement
ED Attending Note
-
Portions of this chart may have been created with voice recognition software.� Occasional wrong word or��sound alike� substitutions may have occurred due to the inherent limitations of voice recognition software.
Discharge Plan
Departure
Patient Disposition: Admit
Date of Disposition: 08/26/25
Time of Disposition: 12:51
Admit to: Med/Surg
Presentation/result/management discussed w/ accepting MD/DO: Hospitalist
Patient with high blood pressure during this ER visit?: Yes
Condition: Good
Covid-19: Negative COVID-19
Discharge Problem:
UTI (urinary tract infection), Fever
Prescriptions:
No Action
aspirin 81 MG tablet,chewable
81 mg PO DAILY Qty: 1 0RF
meloxicam 15 mg Tablet
15 mg PO DAILY
varenicline tartrate [Chantix] 1 mg Tablet
1 mg PO DAILY
Rx Instructions:
unknown mg
esomeprazole magnesium [Nexium] 20 mg Capsule,Delayed Release(Dr/Ec)
40 mg PO DAILY
Rx Instructions:
unknown dose per
Repatha SureClick 140 mg/mL Pen Injector
140 mg SC Q2W
turmeric 400 mg Capsule
400 mg PO DAILY
calcium carbonate 500 mg calcium (1,250 mg) Tablet
500 mg PO DAILY
losartan 100 mg Tablet
100 mg PO DAILY
tamsulosin 0.4 mg Capsule
0.4 mg PO DAILY Qty: 30 0RF
finasteride 5 mg Tablet
5 mg PO DAILY Qty: 30 0RF
Ocuvite Tablet
1 tab PO DAILY
glucosamine-chondroitin [Osteo Bi-Flex] 250-200 mg Tablet
2 tab PO DAILY
[place] 3 Fish Oil 684-1,200 mg Capsule,Delayed Release(Dr/Ec)
2 cap PO DAILY
Referrals:
Leighton Simpson, DO [Family Provider, Family Practice]
Interventions
Interventions:
*Risk Screen - Suicide Last Done: 08/26/25 10:31
*General Assessment Last Done: 08/26/25 10:31
*Neglect/Abuse Screening Last Done: 08/26/25 10:31
*ED COVID-19 Vaccine History Last Done: 08/26/25 11:08
*ED Influenza Vaccine History Last Done: 08/26/25 11:08
[facility] Fall Risk Assessment Tool Last Done: 08/26/25 11:08
ED-Male Genitourinary Assessment Last Done: 08/26/25 11:08
Discharge Date and Time
Print Language: SERBIAN
[2025-08-26 11:22] LABS: Hematocrit 43.5 % (39.0-52.0); Hemoglobin 15.7 g/dL (13.0-18.0); Mean Corp Hgb Conc. 36.1 g/dL (33.0-37.0); Mean Corpuscular Volume 86.3 fL (80.0-94.0); Nucleated Red Blood Cells % 0 % (-); Platelet Count 146 10^3/uL (130-400); Red Cell Dist. Width 11.9 % (11.5-14.5)
--- NOTE | 2025-08-26 11:26 | EDRN ---
the pt was 91% on RA with SOB, this RN notified the provider Dr. Euceda at the pts bedside and 2L NC was placed, Sp02 currently 94%
[2025-08-26] MEDS: NSS 1000 IV ×2 (11:34→17:58)
[2025-08-26] MEDS: TYLENOL 1000 MG PO (11:34)
[2025-08-26] MEDS: NSS 1600 ML IV (11:39)
[2025-08-26 11:51] LABS: ALT (SGPT) 29 U/L (0-50); AST (SGOT) 24 U/L (17-59); Albumin 4.4 g/dl (3.5-5.0); Alkaline Phosphatase 69 U/L (38-126); Blood Urea Nitrogen 21 mg/dl (9-20); Calcium 9.7 mg/dl (8.4-10.2); Carbon Dioxide 24 mmol/L (22-30); Chloride 104 mmol/L (98-107); Estimated Creatinine Clearance 95 ml/min; Glucose 137 mg/dl (70-99); Potassium 3.9 mmol/L (3.5-5.1); Sodium 136 mmol/L (135-145); Total Protein 7.3 g/dl (6.3-8.2); eGFR > 60.00
[2025-08-26 11:51] LABS: COVID-19 Antigen Negative (Negative)
[2025-08-26 12:42] LABS: Urine Character Clear (Clear)
[2025-08-26 12:52] LABS: Urine Squamous Cell 0-2 /LPF (Few)
[2025-08-26 12:53] LABS: Urine Red Blood Cell 16-20 /HPF (0-2); Urine White Cell 40-50 /HPF (0-5)
--- NOTE | 2025-08-26 12:57 | W.PN.UPDATE ---
Update Note
Progress Note Update
This note serves as an addendum to the H&P by interior mechanic PEREZ�
Peggy Huffman
HPI
65M
PMH HTN, GERD, HLD, CAD, hemorrhoids, OA, Cholecystectomy (12/2017)
- pw fevers, chills, vomiting and burning with urination.
- short of breath and cough.
denies chest pain.
denies abdominal pain and back pain.
Relevant VS
08/26/25
10:31 08/26/25
11:08 08/26/25
12:12
Temp 99.3 F 101.3 F H 99.5 F
Pulse 139 123 110
Resp Rate 20 28 26
Blood pressure 165/96 149/84
SaO2 93 92 94
Oxygen Mode of Delivery Room air Room air
Nasal Cannula flow liters per minute 2
PE
Well build
Gen:appears flushed and mildly tachypneic
HEENT:anicteric
Neck: supple
Lungs:clear , tachypneic
Cor:tachycardic
Abdomen:�soft NT NG
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
MS:no edema
Psych:well kept. interactive
Relevant Data
08/26/25 08/26/25
11:04 11:22
WBC 13.5 H
Creatinine 1.1
eGFR > 60.00
Leukocyte Esterase Rfl 3+ A
Urine RBC 16-20 A
Urine WBC (Reflex) 40-50 A
Urine Bacteria (Reflex) Moderate A
08/26/25
11:04
Lactic Acid 1.7
04/02/18 UCx
1. Escherichia coli
M.I.C. RX
--------- ---
Amoxicillin/Potas. Clavulanate <=8/4 S
Ampicillin <=2 S
Ampicillin/Sulbactam <=4/2 S
Aztreonam <=4 S
Cefazolin <=2 S
Cefuroxime-Oral <=4 S
Ertapenem <=0.5 S
Gentamicin <=1 S
Levofloxacin <=1 S
Meropenem <=1 S
Nitrofurantoin-Urine Only <=32 S
Piperacillin/Tazobactam <=8 S
Tobramycin <=2 S
Trimethoprim/Sulfamethoxazole <=0.5/9.5 S
CXR:
No acute cardiopulmonary process.
EKG
SINUS TACHYCARDIA
OTHERWISE NORMAL ECG
WHEN COMPARED WITH ECG OF 22-Aug-2019 15:46,
PREMATURE VENTRICULAR COMPLEXES ARE NO LONGER PRESENT
VENT. RATE HAS INCREASED by [address] AP
Prior hospitalist admission: 02/11/25 - 02/13/25
DC DX;
UTI, no clinical or radiographic signs of pyelonephritis
most likely BPH, no over symptoms of prostatitis
1.3 cm L renal cyst
#subcentimeter low-attenuation left renal lesion
ASSESSMENT & PLAN
UTI in male presumed complicated
POS SIRS - hemodynamically stable
Nl LA 1.7
[employer] ABx sen E Coli UTI complicated with bacteremia
Nl Cr
- Agree with CT AP
- c/w IV CFTX
- NS IVF 100/H
- Trend LA x 2
- FU UCx and BCx
- FU T, WCC
BPH
- Tamulosin
Known HX
Essential HTN
CAD
HLD
GERD
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
DVT Px: LMWH
Code:Full
IP TLM
--- NOTE | 2025-08-26 12:58 | HPS.HSE ---
Family Physician
-
Family Physician: Leighton Simpson
Chief Complaint
-
dysuria
History of Present Illness
Patient is a 65-year-old male with past medical history significant for hypertension, hyperlipidemia, hypertriglyceridemia, CAD, GERD and BPH who presented to [facility] ED for evaluation of dysuria. Patient with previous history of E. coli UTI with
secondary bacteremia now presents for acute onset dysuria, fever, chills, nausea and vomiting. Patient reports all symptoms started around 0330 this morning when he woke with burning with urination and fever. Denies any cough, shortness of breath,
chest pain, constipation or diarrhea.
Medical History
Past Medical History
Past Medical History: Reports Other
Additional Past Medical History:
essential hypertension
hyperlipidemia
hypertriglyceridemia
CAD
GERD
BPH
Past Surgical History: Reports Other
Additional Past Surgical History:
Laparoscopic cholecystectomy 12/17/2017
Mohs surgery on multiple occasions
cardiac catheterization 09-07
Right TKA 05/10/2023 [facility]
Social History
Tobacco: Former Smoker (quit 5 years ago, now will smoke socially )
Alcohol: Occasional
Drug: None
Personal:
Living: With Family
Employment: Employed
Family History
Family History: Not pertinent
Allergies / Home Medications
Allergies reflects when Allergies were last updated in [facility].
Home Medications with original date entered in [facility]
Allergy/Medication List:
Allergies
Allergy/AdvReac Type Severity Reaction Status Date / Time
bempedoic acid (From Allergy Nausea / Verified 08/26/25 10:33
Nexlizet) Vomiting
ezetimibe (From Nexlizet) Allergy Nausea / Verified 08/26/25 10:33
Vomiting
Home Medications
aspirin 81 mg chewable tablet 81 mg PO DAILY #1 tab 08/25/19
calcium carbonate 500 mg PO DAILY Supplement 02/11/25
esomeprazole magnesium 20 mg capsule,delayed release (Nexium) 40 mg PO DAILY Gastrointestinal Issue 02/11/25
evolocumab 140 mg/mL subcutaneous pen injector (Repatha SureClick) 140 mg SC Q2W cholesterol 02/11/25
losartan 100 mg tablet 100 mg PO DAILY Blood Pressure 02/11/25
meloxicam 15 mg tablet 15 mg PO DAILY Pain 02/11/25
turmeric 400 mg capsule 400 mg PO DAILY Supplement 02/11/25
varenicline tartrate 1 mg tablet (Chantix) 1 mg PO DAILY Smoking Cessation 02/11/25
finasteride 5 mg tablet 5 mg PO DAILY #30 tabs 02/13/25
tamsulosin 0.4 mg capsule 0.4 mg PO DAILY #30 caps 02/13/25
glucosamine-chondroitin 250 mg-200 mg tablet 2 tab PO DAILY 08/26/25
omega-3 fatty acids-fish oil 684 mg-1,200 mg capsule,delayed release 2 cap PO DAILY 08/26/25
vitamin A-vitamin C-vit E-min tablet 1 tab PO DAILY 08/26/25
Review of Systems
-
History Source: Patient
Constitutional: Reports Fever and Chills
EENT: Denies Sore Throat
Respiratory: Denies Cough, Hemoptysis or Trouble Breathing
Cardiac: Denies Chest Pain, Diaphoresis, Palpitations or Syncope
Abdomen/GI: Reports Nausea and Vomiting; Denies Abdominal Pain, Diarrhea or Constipated
: Reports Dysuria and Difficulty Voiding; Denies Frequency or Urgency
Musculoskeletal: Denies Joint Pain
Skin: Denies Rash
Neurological: Denies Dizzy, Headache, Weakness or Numbness
Physical Exam
Vital Signs
Vital Signs
Temp Pulse Resp BP Pulse Ox
99.5 F 110 26 139/76 94
08/26/25 12:12 08/26/25 12:12 08/26/25 12:12 08/26/25 12:12 08/26/25 12:12
Physical Exam
General: Well Developed, Well Nourished, No Apparent Distress, Comfortable and Obese
HEENT: NormoCephalic, Moist mucous membranes, PERRLA, Nose Appears Normal, Ears Appear Normal and Hearing Impaired
Respiratory: Clear and Non Labored Respirations
Cardiac: S1/S2, Regular Rhythm and Tachycardia; No Murmur, Rub, Gallop or Peripheral Edema
GI: Soft, Non Tender, Non Distended and Normal Bowel Sounds
Musculoskeletal: No Clubbing, No Cyanosis and No Edema
Skin: Warm and IV/Catheter Site
Neuro: Awake and AO x 3
Psych: Calm and Intact Judgment/Insight
Laboratory Results
-
08/26/25 11:04
08/26/25 11:04
Laboratory Results
Lactic Acid 1.7 mmol/L (0.7-2.0) 08/26/25 11:04
Total Bilirubin 0.8 mg/dl (0.2-1.3) 08/26/25 11:04
AST 24 U/L (17-59) 08/26/25 11:04
ALT 29 U/L (0-50) 08/26/25 11:04
Alkaline Phosphatase 69 U/L (38-126) 08/26/25 11:04
Data Reviewed
-
Diagnostic Radiology: Report Reviewed by me (CXR: No acute cardiopulmonary process.)
Medical Tests (Nuc Med, Echo, EKG etc): Report Reviewed by me (EKG: SINUS TACHYCARDIA)
Lab Data: Labs Reviewed by me (WBC 13.5, Neut 91.6, UA: indicative of UTI)
Impression/Plan
-
IMPRESSION/PLAN:
#possible sepsis likely 2/2 complicated UTI
acute onset dysuria, fever, chills, nausea and vomiting this morning
history of E. coli UTI
WBC 13.5, Neut 91.6, Lactic 1.7
UA: indicative of UTI
Covid: negative
Influenza: negative
CXR: No acute cardiopulmonary process.
EKG: SINUS TACHYCARDIA
Abd/Pel CT: pending
- Admit to telemetry
- trend lactic
- IV Rocephin
- supportive care
#essential hypertension
- continue losartan
#CAD
- continue aspirin
#GERD
- continue esomeprazole
#BPH
- continue finasteride and tamsulosin
#hyperlipidemia
#hypertriglyceridemia
- continue Repatha out patient
Code status: Full Code
DVT prophylaxis: heparin sq
[2025-08-26] MEDS: ROCEPHIN 1000 MG IV (13:29)
--- NOTE | 2025-08-26 14:15 | CM ---
Chart reviewed. Spoke with patient at ED bedside
Lives in [address] with
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
DME none
PCP Dr. Leighton Simpson
[facility] in [place]
no hx of VN nor SNF
DCP is to return home no needs
CM will continue to follow up for and dcp needs
--- NOTE | 2025-08-26 16:36 | EDRN ---
this RN called the receiving unit and notified them that paper report was going to be tubed up
[2025-08-26] MEDS: LOVENOX 40 MG SC (17:58)
[2025-08-27 03:00] VITALS: BP 94/58
[2025-08-27 07:27] VITALS: BP 142/60
[2025-08-27] MEDS: NSS IV (07:36)
--- NOTE | 2025-08-27 08:21 | CONS.URO ---
Consultation
-
Date/Time Consultation Requested: 08/27/2025 0727
Date/Time Consultation Performed: 08/27/2025 0830
Requesting Provider: hospitalist
Performing Provider: Tam
Reason for Consultation: stone
Medical History
History of Present Illness
Patient of Dr Mosley: 02/26/25 'roughly two weeks following a hospitalization for a complicated UTI (urine cx did NOT confirm infection)
He had been begun on antibiotics rpior to admission:� cultures were negative
A CT scan revealed evidence of mild prostatomegaly and bladder wall thickening.�'
08/26/2025 ED note: '65-year-old man who reports waking up this morning with fevers, chills, vomiting and burning with urination. Patient also feels short of breath and admits to a cough. He denies chest pain. He denies abdominal pain and back
pain..'
Past Medical History
Past Medical History: Other (Basal cell carcinoma R lower eyelid & right neck-wide excision of both lesions 2000. Diverticulosis. Ext. hemorrhoids. Sessile serrated adenoma polyps. E coli and Sepsis March 2018. History of
squamous cell carcinoma of the skin. Gastroesophageal reflux disease. Ess)
Past Surgical History: Other ( 12/17/2017 Laparoscopic cholecystectomy Mohs surgery on multiple occasions cardiac catheterization - Right TKA 05/10/2023 [facility])
Social History
Personal:
Living: With Family
Allergies/Home Medications
Allergies
Allergy/AdvReac Type Severity Reaction Status Date / Time
bempedoic acid (From Allergy Nausea / Verified 08/26/25 10:33
Nexlizet) Vomiting
ezetimibe (From Nexlizet) Allergy Nausea / Verified 08/26/25 10:33
Vomiting
Home Medications
�Medication �Instructions �Recorded �Confirmed �Type
aspirin 81 mg chewable tablet 81 mg PO DAILY #1 tab 08/25/19 08/26/25 Rx
calcium carbonate 500 mg PO DAILY Supplement 02/11/25 08/26/25 History
esomeprazole magnesium 20 mg 40 mg PO DAILY Gastrointestinal 02/11/25 08/26/25 History
capsule,delayed release (Nexium) Issue
evolocumab 140 mg/mL subcutaneous 140 mg SC Q2W cholesterol 02/11/25 08/26/25 History
pen injector (Fredy Gonzalez)
losartan 100 mg tablet 100 mg PO DAILY Blood Pressure 02/11/25 08/26/25 History
meloxicam 15 mg tablet 15 mg PO DAILY Pain 02/11/25 08/26/25 History
turmeric 400 mg capsule 400 mg PO DAILY Supplement 02/11/25 08/26/25 History
varenicline tartrate 1 mg tablet 1 mg PO DAILY Smoking Cessation 02/11/25 08/26/25 History
(Chantix)
finasteride 5 mg tablet 5 mg PO DAILY #30 tabs 02/13/25 08/26/25 Rx
tamsulosin 0.4 mg capsule 0.4 mg PO DAILY #30 caps 02/13/25 08/26/25 Rx
glucosamine-chondroitin 250 mg-200 2 tab PO DAILY 08/26/25 08/26/25 History
mg tablet
omega-3 fatty acids-fish oil 684 2 cap PO DAILY 08/26/25 08/26/25 History
mg-1,200 mg capsule,delayed release
vitamin A-vitamin C-vit E-min 1 tab PO DAILY 08/26/25 08/26/25 History
tablet
Physical Exam
Vital Signs
Vital Signs
Temp Pulse Resp BP Pulse Ox
97.8 F 65 17 142/60 96
08/27/25 07:27 08/27/25 07:27 08/27/25 07:27 08/27/25 07:27 08/27/25 07:27
Physical Exam
adult male in bed
General: No Apparent Distress
GI: Soft and Non Tender
Genito-urinary: No Costovertebral Tend
Skin: Warm
Neuro: Awake and Alert
Psych: Calm and Intact Judgement
Assessment / Plan
-
2-3 mm calculus at the right ureterovesical junction without any significant associated right-sided hydroureteronephrosis.
irritative urinary symptoms are likely due to small, non-obstructing right most-distal ureteral stone
fevers and vomiting are NOT LIKELY due to stone or UTI -- stone is non-obstructive; UA is nitrite negative
Rec:
strain urine
Tamsulosin
tx for possible UTI AND OTHER SOURCES OF POTENTIAL INFECTION INCLUDING URI
Data Reviewed
-
CT Scan: Image personally visualized and interpreted
Lab Data: Labs Reviewed
Old Records: Reviewed
[2025-08-27] MEDS: PROSCAR 5 MG PO (08:47)
[2025-08-27] MEDS: MOBIC 15 MG PO (08:47)
[2025-08-27] MEDS: FLOMAX 0.4 MG PO (08:47)
[2025-08-27] MEDS: OSCAL CAL 500 500 MG PO (08:47)
[2025-08-27] MEDS: COZAAR 100 MG PO (08:47)
[2025-08-27] MEDS: LOW STRENGTH ASPIRIN 81 MG PO (08:47)
[2025-08-27] MEDS: PROTONIX 40 MG PO (08:47)
[2025-08-27 09:01] LABS: Hematocrit 41.5 % (39.0-52.0); Hemoglobin 14.5 g/dL (13.0-18.0); Mean Corp Hgb Conc. 34.9 g/dL (33.0-37.0); Mean Corpuscular Volume 88.3 fL (80.0-94.0); Platelet Count 144 10^3/uL (130-400); Red Cell Dist. Width 12.2 % (11.5-14.5)
[2025-08-27 09:23] LABS: Blood Urea Nitrogen 16 mg/dl (9-20); Calcium 9.1 mg/dl (8.4-10.2); Carbon Dioxide 27 mmol/L (22-30); Chloride 107 mmol/L (98-107); Estimated Creatinine Clearance 105 ml/min; Glucose 108 mg/dl (70-99); Potassium 4.3 mmol/L (3.5-5.1); Sodium 138 mmol/L (135-145); eGFR > 60.00
[2025-08-27 11:08] VITALS: BP 145/79
--- NOTE | 2025-08-27 11:49 | W.PN.HOSP.TC ---
Addendum entered and electronically signed by César Venegas MD 08/27/25 13:44:
spoke with in details over the phone
Original Note:
Today's Communication/Plan
-
see PN
Assessment / Plan
Assessment / Plan
65yo M with PMHx of cholecystectomy, CAD, DJD, GERD came with 1 day of burning with urination managed for UTI,. CT with 3mm R UVJ stone without hydronephrosis
A/P:
#Dysuria, most likely UTI
When evaluating for alternative source of infection: patient without cough, congestion or sore throat, no abd pain, diarrhea, no rash
C/O burning on urination with GNB in urine - most likely UTI
IVF
Urology: no intervvention needed
COnt Rocephin pending Ucx
BCx NTD
tamsulosin/finasteride
#Chronic SOB on exertion
had sleep study neg for SIM as per patient
current occasional smoker
Outpatient low dose CT with pulm eval recommended
#CAD, stable
#DJD
#HLD
#Essential HTN
COnt home meds
#Diverticulosis 2/o diverticulitis
high fiber diet
DVT ppx lovenox
Full code
I have spent at least 56min reviewing hcart, test results, communication with consultnats and providing direct patient care
Anticipated Discharge: 24 - 48 hours
Subjective/Interval History
-
Date of Service: August 27, 2025
Objective Data
-
Labs:
Laboratory Results
08/27/25
08:30
WBC 18.8 H
Hgb 14.5
Hct 41.5
Plt Count 144
Sodium 138
Potassium 4.3
Chloride 107
Carbon Dioxide 27
BUN 16
Creatinine 1.0
Glucose 108 H
Calcium 9.1
Vital Signs:
Vital Signs
Temp Pulse Resp BP Pulse Ox
98.2 F 62 17 145/79 97
08/27/25 11:08 08/27/25 11:08 08/27/25 11:08 08/27/25 11:08 08/27/25 11:08
I&O
08/26/25 08/27/25 08/28/25
06:59 06:59 06:59
Intake Total 240 / 240
Balance 240 / 240
Review of Systems
-
History Source: Patient
All other systems: Reviewed and negative
Genitourinary: Reports Dysuria
Physical Exam
-
General: No Apparent Distress
HEENT: Normocephalic
Respiratory: Clear to Auscultation
Cardiac: Regular Rhythm
GI: Soft, Nontender and Nondistended
Genito-urinary: No Costovertebral Tender
Neuro: Awake, Alert, Oriented and AO x 3
Psych: Calm
[2025-08-27] MEDS: NSS 1000 IV (12:04)
[2025-08-27] MEDS: STERILE WATER FOR INJECTION 10 ML IV (12:09)
[2025-08-27] MEDS: ROCEPHIN 1000 MG IV (12:09)
[2025-08-27 14:34] VITALS: BP 149/82
--- NOTE | 2025-08-27 14:40 | CM ---
Patient seen at bedside
urology consulted
PLAN: Home, no needs anticipated, CM to continue to follow
[2025-08-27] MEDS: LOVENOX 40 MG SC (17:23)
[2025-08-27 19:00] VITALS: BP 131/80
[2025-08-27 23:00] VITALS: BP 143/80
[2025-08-28] MEDS: NSS 1000 IV (01:29)
[2025-08-28 03:00] VITALS: BP 152/75
[2025-08-28 06:38] LABS: Hematocrit 40.6 % (39.0-52.0); Hemoglobin 13.8 g/dL (13.0-18.0); Mean Corp Hgb Conc. 34.0 g/dL (33.0-37.0); Mean Corpuscular Volume 91.2 fL (80.0-94.0); Nucleated Red Blood Cells % 0 % (-); Platelet Count 144 10^3/uL (130-400); Red Cell Dist. Width 12.1 % (11.5-14.5)
[2025-08-28 07:32] VITALS: BP 101/61
[2025-08-28] MEDS: FLOMAX 0.4 MG PO (08:57)
[2025-08-28] MEDS: PROTONIX 40 MG PO (08:57)
[2025-08-28] MEDS: MOBIC 15 MG PO (08:57)
[2025-08-28] MEDS: OSCAL CAL 500 500 MG PO (08:57)
[2025-08-28] MEDS: LOW STRENGTH ASPIRIN 81 MG PO (08:57)
[2025-08-28] MEDS: PROSCAR 5 MG PO (08:57)
[2025-08-28] MEDS: COZAAR 100 MG PO (08:57)
--- NOTE | 2025-08-28 09:54 | CM ---
patient seen at bedside
no needs
PLAN: Home, no needs when stable
to transport
--- NOTE | 2025-08-28 10:37 | W.PN.HOSP.TC ---
Today's Communication/Plan
-
dc
Assessment / Plan
Assessment / Plan
65yo M with PMHx of cholecystectomy, CAD, DJD, GERD came with 1 day of burning with urination managed for UTI,. CT with 3mm R UVJ stone without hydronephrosis. Urology deemed no need for intervention.Ucx with Klebsiela aerogenes. Cipro for 7 days.
A/P:
#Dysuria, most likely UTI
When evaluating for alternative source of infection: patient without cough, congestion or sore throat, no abd pain, diarrhea, no rash
C/O burning on urination with GNB in urine - most likely UTI. Ucx with Klebsiela aerogenes.
No abdominal aortic aneurysm on CT, QTc not prolonged - cipro for 7 days as per Cx sensitivity. Work note provided to stay off work for the duration of the treatment
IVF
Urology: no intervention needed
COnt Rocephin pending Ucx
BCx NTD
tamsulosin/finasteride
#Chronic SOB on exertion
had sleep study neg for SIM as per patient
current occasional smoker - counseled on quiting
#CAD, stable
#DJD
#HLD
#Essential HTN
COnt home meds
#Diverticulosis 2/o diverticulitis
high fiber diet
DVT ppx lovenox
Full code
I have spent at least 36min reviewing hcart, test results, communication with consultnats and providing direct patient care
Anticipated Discharge: Today
Subjective/Interval History
-
Date of Service: August 28, 2025
Objective Data
-
Labs:
Laboratory Results
08/28/25
06:08
WBC 13.8 H
Hgb 13.8
Hct 40.6
Plt Count 144
Vital Signs:
Vital Signs
Temp Pulse Resp BP Pulse Ox
98.0 F 81 17 101/61 97
08/28/25 07:32 08/28/25 07:32 08/28/25 07:32 08/28/25 07:32 08/28/25 08:30
I&O
08/27/25 08/28/25 08/29/25
06:59 06:59 06:59
Intake Total 240 / 240 2280 / 2280
Output Total 3200 / 3200
Balance 240 / 240 -920 / -920
Review of Systems
-
History Source: Patient
All other systems: Reviewed and negative
Physical Exam
-
General: No Apparent Distress
HEENT: Normocephalic
Neuro: Awake, Alert, Oriented and AO x 3
Psych: Calm
--- NOTE | 2025-08-28 10:43 | W.DCSUMMARY ---
Discharge Summary
Discharge Data
Date of Admission: 08/26/25
Date of Discharge: 08/28/25
-
Pending Results: No
Hospital Course
65yo M with PMHx of cholecystectomy, CAD, DJD, GERD came with 1 day of burning with urination managed for UTI,. CT with 3mm R UVJ stone without hydronephrosis. Urology deemed no need for intervention.Ucx with Klebsiela aerogenes. Cipro for 7 days.
Medically stable to d/c home. DIscussed in details with over the phone
I have spent at least 36min reviewing hcart, test results, communication with consultnats and providing direct patient care
Patient was managed for:
#Dysuria, most likely UTI
#Chronic SOB on exertion
#CAD, stable
#DJD
#HLD
#Essential HTN
#Diverticulosis 2/o diverticulitis
Discharge Plan
-
Patient Disposition: Home (Routine Discharge)
Discharge Diagnosis/Procedures: UTI
Diet: Low Cholesterol
Activity: No strenuous activity
Driving Restrictions: As prior to admission
Referrals:
Leighton Simpson DO [Family Provider, Family Practice]
Prescriptions:
New
ciprofloxacin HCl 500 mg Tablet
500 mg PO BID Qty: 13 0RF
Continued
aspirin 81 MG tablet,chewable
81 mg PO DAILY Qty: 1 0RF
meloxicam 15 mg Tablet
15 mg PO DAILY
varenicline tartrate [Chantix] 1 mg Tablet
1 mg PO DAILY
Rx Instructions:
unknown mg
esomeprazole magnesium [Nexium] 20 mg Capsule,Delayed Release(Dr/Ec)
40 mg PO DAILY
Rx Instructions:
unknown dose per
Repatha SureClick 140 mg/mL Pen Injector
140 mg SC Q2W
turmeric 400 mg Capsule
400 mg PO DAILY
calcium carbonate 500 mg calcium (1,250 mg) Tablet
500 mg PO DAILY
losartan 100 mg Tablet
100 mg PO DAILY
tamsulosin 0.4 mg Capsule
0.4 mg PO DAILY Qty: 30 0RF
finasteride 5 mg Tablet
5 mg PO DAILY Qty: 30 0RF
vitamin A-vitamin C-vit E-min Tablet
1 tab PO DAILY
glucosamine-chondroitin 250-200 mg Tablet
2 tab PO DAILY
omega-3 fatty acids-fish oil 684-1,200 mg Capsule,Delayed Release(Dr/Ec)
2 cap PO DAILY
Discharge Orders:
Discharge Patient (As Directed); Ordered 08/28/25
Ordered By: César Venegas
Discharge Date and Time
Print Language: SAO TOMEAN
[2025-08-28] MEDS: CIPRO 500 MG PO (11:00)
[2025-08-28 11:24] VITALS: BP 150/78
== END 2025-08-28 11:55 | disposition home or self-care (01) | DRG 690 ==
LOC: 3 WEST ACU 14:06
PROVIDERS: Nurse Practitioner Family; ADMITTING PHYSICIAN Internal Medicine; ATTENDING PHYSICIAN Internal Medicine; CONSULT PHYSICIAN Specialist; EMERGENCY PHYSICIAN Emergency Medicine; FAMILY PHYSICIAN Family Medicine
DX: N39.0 Urinary tract infection, site not specified (principal); N20.1 Calculus of ureter; K21.9 Gastro-esophageal reflux disease without esophagitis; M19.90 Unspecified osteoarthritis, unspecified site; F17.200 Nicotine dependence, unspecified, uncomplicated; I10 Essential (primary) hypertension; I25.10 Atherosclerotic heart disease of native coronary artery without angina pectoris; E78.1 Pure hyperglyceridemia; N40.0 Benign prostatic hyperplasia without lower urinary tract symptoms; Z96.651 Presence of right artificial knee joint; Z90.49 Acquired absence of other specified parts of digestive tract; Z88.8 Allergy status to other drugs, medicaments and biological substances; Z85.828 Personal history of other malignant neoplasm of skin; Z79.82 Long term (current) use of aspirin; Z79.1 Long term (current) use of non-steroidal anti-inflammatories (NSAID); Z79.899 Other long term (current) drug therapy; Z87.440 Personal history of urinary (tract) infections; Z87.19 Personal history of other diseases of the digestive system; Z11.52 Encounter for screening for COVID-19
CPT/HCPCS: 71046; 74176; 80048; 80053; 81003; 81015; 83605; 85025; 85027; 87040; 87077; 87086; 87186; 87502; 87811; 93005; 96361; 96374; 99291